=== PATIENT | male | born 1955 | race Caucasian/White ===

== ENCOUNTER 2019-04-02 13:23 | Emergency (ER) | payer BC ==
[2019-04-02 14:02] VITALS: BP 140/85
--- NOTE | 2019-04-02 15:11 | UC ---
Respiratory Complaint HPI - HPI Summary HPI Summary: 63 yo male with productive cough x 4 days green phelgm no CP or SOB no fever or chills no MARION or myalgias now ears are popping - History of Current Complaint Chief Complaint: UCRespiratory Stated Complaint: CHEST CONGESTION COUGH EAR PRESSURE Time Seen by Provider: 04/02/19 15:09 Hx Obtained From: Patient Onset/Duration: Gradual Onset, Lasting Days Timing: Constant Severity Initially: Mild Severity Currently: Mild Pain Intensity: 1 Pain Scale Used: 0-10 Numeric Character: Cough: Productive Aggravating Factors: Nothing Alleviating Factors: Nothing Associated Signs And Symptoms: Negative: Dyspnea, Fever, Chills, Pleuritic Chest Pain, Wheezing, Hemoptysis, Dizziness, Calf Pain, Calf Swelling, Edema, URI, Nasal Congestion, Hoarseness, Sinus Discomfort - Allergies/Home Medications Allergies/Adverse Reactions: Allergies Allergy/AdvReac Type Severity Reaction Status Date / Time No Known Allergies Allergy Verified 04/02/19 14:02 PMH/Surg Hx/FS Hx/Imm Hx Previously Healthy: Yes - mono and lyme disease - Surgical History Surgical History: Yes Surgery Procedure, Year, and Place: shoulder repair - Family History Known Family History: Positive: Hypertension - Social History Alcohol Use: Daily Substance Use Type: Marijuana Smoking Status (MU): Never Smoked Tobacco Review of Systems All Other Systems Reviewed And Are Negative: Yes Constitutional: Positive: Negative Skin: Positive: Negative Eyes: Positive: Negative ENT: Positive: Other - ears popping Respiratory: Positive: Cough Cardiovascular: Positive: Negative Gastrointestinal: Positive: Negative Genitourinary: Positive: Negative Motor: Positive: Negative Neurovascular: Positive: Negative Musculoskeletal: Positive: Negative Neurological: Positive: Negative Psychological: Positive: Negative Physical Exam Triage Information Reviewed: Yes Appearance: Well-Appearing, No Pain Distress, Well-Nourished Vital Signs: Initial Vital Signs Temp 98.9 F 04/02/19 13:57 Pulse 73 04/02/19 13:57 Resp 18 04/02/19 13:57 BP 140/85 04/02/19 13:57 Pulse Ox 98 04/02/19 13:57 Vital Signs Reviewed: Yes Eyes: Positive: Conjunctiva Clear ENT: Positive: Hearing grossly normal, TM bulging, Uvula midline. Negative: Pharyngeal erythema, Nasal congestion, Nasal drainage, Tonsillar swelling, Tonsillar exudate, Trismus, Muffled voice, Hoarse voice, Dental tenderness, Sinus tenderness Dental Exam: Normal Neck: Positive: Supple, Nontender, No Lymphadenopathy Respiratory: Positive: No respiratory distress, No accessory muscle use, Wheezing - especially with forced expiration Cardiovascular: Positive: RRR, No Murmur Musculoskeletal: Positive: ROM Intact, No Edema Neurological: Positive: Alert Psychological Exam: Normal Skin Exam: Normal Respiratory Course/Dx - Differential Dx/Diagnosis Provider Diagnosis: Acute bronchospasm due to viral infection, Eustachian tube dysfunction, Elevated BP without diagnosis of hypertension Discharge - Sign-Out/Discharge Documenting (check all that apply): Patient Departure All imaging exams completed and their final reports reviewed: No Studies - Discharge Plan Condition: Stable Disposition: HOME Prescriptions: predniSONE [Deltasone 20 MG TAB] 40 mg PO DAILY #8 tab Patient Education Materials: Bronchospasm (ED), How to Use a Metered-Dose Inhaler and a Spacer (ED) Referrals: [facility] [place] [facility] REFERRAL [Outside] - 2 Weeks (I suggest recheck BP in 2-12 weeks) Additional Instructions: recheck in 4-5 days if not improved rechecked sooner for worsening symptoms - Billing Disposition and Condition Condition: STABLE Disposition: Home
[2019-04-02] MEDS ORDERED: Albuterol HFA INHALER* 8 gm MDI INH ONE (15:25)
[2019-04-02] MEDS ORDERED: predniSONE TAB* 20 MG PO ONE (15:25)
== END 2019-04-02 15:45 | disposition home or self-care (01) ==
LOC: UCEAST 13:23
DX: J98.01 Acute bronchospasm (principal); B34.9 Viral infection, unspecified; H69.90 Unspecified Eustachian tube disorder, unspecified ear; R03.0 Elevated blood-pressure reading, without diagnosis of hypertension
CPT/HCPCS: 99213; A9270-GY; G0463; J7512